=== PATIENT | female | born 1980 | race Caucasian/White ===

== ENCOUNTER 2016-07-13 01:33 | Emergency (ER) | payer SELFPAY ==
[~2016-07-13] VITALS: Ht 170.2 cm; Wt 105.5 kg
[~2016-07-13 01:33] MED LIST: CIPR500T4 PO; LEVO175T38 PO; NORG1TAB55 PO; PHEN-537 PO
[2016-07-13 01:36] VITALS: Ht 170.2 cm; Wt 105.5 kg
[2016-07-13] MEDS ORDERED: ONDANSETRON 4 MG INJ IV STA (01:39)
[2016-07-13] MEDS ORDERED: SOD CHLORIDE 0.9% 500 ML IV STA (01:39)
[2016-07-13] MEDS ORDERED: morphine 4 MG/ML VIAL IV STA (01:39)
[2016-07-13 01:48] LABS: URINE BLOOD (Dip) POC Trace-lysed (NEGATIVE)
[2016-07-13 02:10] LABS: ADD SCAN DIFF NO
[2016-07-13 02:18] LABS: ABNORMAL IP MESSAGE 1; BASOPHILS % 0.2 % (0.0-2.0); EOSINOPHILS # 0.2 10^3/ul (0.0-0.5); EOSINOPHILS % 0.7 % (0.0-7.0); HEMATOCRIT 42.5 % (37.0-47.0); LYMPHOCYTES # 2.6 10^3/ul (0.8-2.9); LYMPHOCYTES % 12.4 % (15.0-51.0); MEAN CORPUSCULAR HEMOGLOBIN 29.5 pg (29.0-33.0); MEAN CORPUSCULAR HGB CONC 32.9 g/dl (32.0-37.0); MEAN CORPUSCULAR VOLUME 89.7 fl (82.0-101.0); MEAN PLATELET VOLUME 9.6 fl (7.4-10.4); MONOCYTE # 1.7 10^3/ul (0.3-0.9); NEUTROPHIL # 16.6 10^3/ul (1.6-7.5); NEUTROPHILS % 78.1 % (39.0-77.0); PLATELET COUNT 400 10^3/UL (140-415); RED BLOOD COUNT 4.74 10^6/ul (4.20-5.40); RED CELL DISTRIBUTION WIDTH 12.2 % (11.5-14.5); WHITE BLOOD COUNT 21.2 10^3/ul (4.8-10.8)
[2016-07-13] MEDS ORDERED: LORA1TAB PO (02:21)
[2016-07-13] MEDS ORDERED: CYCL-319 PO (02:21)
[2016-07-13] MEDS ORDERED: MELA1TAB9 PO (02:22)
[2016-07-13 02:24] LABS: ADD UMIC YES; URINE BILIRUBIN (Dip) NEGATIVE (NEGATIVE); URINE BLOOD (Dip) TRACE (NEGATIVE); URINE COLOR YELLOW (YELLOW); URINE GLUCOSE (Dip) NEGATIVE (NEGATIVE); URINE KETONES (Dip) TRACE (NEGATIVE); URINE LEUKOCYTE ESTERASE (Dip) NEGATIVE (NEGATIVE); URINE NITRITE (Dip) NEGATIVE (NEGATIVE); URINE TOTAL PROTEIN (Dip) 1+ (NEGATIVE); URINE UROBILINOGEN (Dip) 0.2 E.U./dL (0.1-1.0)
[2016-07-13] MEDS ORDERED: OMEP10CA4 PO (02:25)
[2016-07-13 02:31] LABS: ALBUMIN 4.4 g/dl (3.3-4.9); POTASSIUM 3.7 mmol/L (3.5-5.1)
[2016-07-13 02:33] LABS: BACTERIA,URINE MODERATE; SQUAMOUS EPITHELIAL CELL,UR FEW; URINE RBCS 0-2 /HPF (0)
[2016-07-13 02:34] LABS: ALBUMIN/GLOBULIN RATIO 1.29; BILIRUBIN,INDIRECT 0.2 mg/dl (0-1.1); BILIRUBIN,TOTAL 0.2 mg/dl (0.2-1.3); CALCIUM 9.4 mg/dl (8.4-10.2); CREATININE 0.73 mg/dl (0.44-1.00); TOTAL PROTEIN 7.8 g/dl (6.1-8.1)
[2016-07-13] MEDS ORDERED: LIDOCAINE/MYLANTA 40 ML BTL PO ONE (03:00)
--- NOTE | 2016-07-13 04:33 | RADRPT ---
PROCEDURE: CT Abdomen and pelvis without contrast. CLINICAL INDICATION: Abdominal pain. TECHNIQUE: CT scan of the abdomen and pelvis was performed on a multi-detector high-resolution CT scanner. Contiguous axial images were obtained from the lung bases to the ischial tuberosities wit hout intravenous contrast. Coronal and sagittal reformatted images were also obtained. Images were reviewed on the PACS workstation. One or more of the following dose reduction techniques were used: - Automated exposure control. - Adjustment of the mA and/or kV according to patient size. - Use of iterative reconstruction technique. Exam CTD/vol = 22.82 mGy. Total exam DLP = 1453.08 mGy-cm. COMPARISON: 03/24/2015. FINDINGS: Evaluation of the lung bases demonstrates minimal bibasilar atelectasis. Abdomen: The liver is normal in size and diffusely low in attenuation consistent with fatty infiltr ation. There is no focal mass or dilatation of the biliary tree. The gallbladder is not distended. The spleen is normal in size and contains a small 10 mm hypodense lesion which could represent a c yst or hemangioma. The pancreas and bilateral adrenal glands are within normal limits. Bilateral k idneys are normal in size with no contour deforming mass identified. There is a 2 mm calculus withi n the mid to lower pole of the right kidney. There is no ureteral calculus identified. There is no hydronephrosis or hydroureter. There is no retroperitoneal adenopathy. The abdominal aorta is of normal caliber. There is no abnormal bowel wall thickening or distension. There is no bowel obstruction or free air . A normal appendix is identified. There is no diverticulosis or diverticulitis. There is no asci roel. Pelvis: The bladder is unremarkable. The uterus and adnexa are within normal limits. There is no significant pelvic adenopathy or free fluid. Evaluation of the osseous structures demonstrates no suspicious lytic or blastic lesion. IMPRESSION: Fairly infiltration of the liver. Small splenic cyst versus hemangioma, unchanged. Nonobstructing right renal calculus. Otherwise no acute abnormality identified within the abdomen and pelvis. .Jesse Tellez MD, Date Time Electronically viewed and signed by .Jesse Tellez MD, on 07/13/2016 04:33 .T/
--- NOTE | 2016-07-13 04:36 | ERD ---
ER Documentation Chief Complaint Date/Time DATE: 07/13/16 TIME: 04:35 Chief Complaint epigstric pain since 2 hours ago HPI This very pleasant 35 year from epigastric and vomiting since 2 hours ago. Pain is mild to moderate intensity. Happened after she had a vegan hamburger. Mild nausea but no vomiting. Complains of abdominal distention. No sylvester abdominal pain. No other current complaints. ROS All systems reviewed and are negative except as per history of present illness. Medications Home Meds Reported Medications Omeprazole* (Omeprazole*) 10 Mg Capsule.dr, 10 MG PO DAILY, #30 CAP 07/13/16 Melatonin-Pyridoxine Hcl (Melatonin) Unknown Strength Tablet, 1 TAB PO HS, TAB 07/13/16 Cyclobenzaprine Hcl* (Cyclobenzaprine Hcl*) 10 Mg Tablet, 10 MG PO TID, #90 TAB 07/13/16 Lorazepam* (Lorazepam*) 1 Mg Tablet, 0.5 MG PO Q8 Y for PAIN, #60 TAB 07/13/16 Levothyroxine Sodium* (Levoxyl*) 175 Mcg Tablet, 175 MCG PO BEFORE BREAKFAST, # 30 TAB 03/24/15 Norgestimate-Ethinyl Estradiol (Sprintec) 1 Tab Tablet, 1 TAB PO, TAB 03/24/15 Discontinued Scripts Ciprofloxacin Hcl* (Ciprofloxacin Hcl*) 500 Mg Tablet, 500 MG PO BID for 10 Days , TAB Prov:NACHO NICE DO 03/24/15 Phenazopyridine Hcl* (Pyridium*) 100 Mg Tab, 100 MG PO TID Y for DYSURIA, #8 TAB Prov:NACHO NICE DO 03/24/15 Allergies Allergies: Coded Allergies: pseudoephedrine (Unverified Allergy, Unknown, 07/13/16) Uncoded Allergies: LORCAPS (Allergy, Unknown, 03/24/15) PMhx/Soc History of Surgery: Yes (thyroid ca) Hx Miscellaneous Medical Probl: Yes (kidney stone) Hx Alcohol Use: No Hx Substance Use: No Hx Tobacco Use: No Smoking Status: Never smoker Physical Exam Vitals Vital Signs Date Time Temp Pulse Resp B/P Pulse Ox O2 Delivery O2 Flow Rate FiO2 07/13/16 03:51 98.4 86 20 123/78 100 Room Air 07/13/16 01:36 97.6 111 20 152/90 98 Physical Exam Const: [] Head: Atraumatic Eyes: Normal Conjunctiva ENT: Normal External Ears, Nose and Mouth. Neck: Full range of motion..~ No meningismus. Resp: Clear to auscultation bilaterally Cardio: Regular rate and rhythm, no murmurs Abd: Soft, non tender, non distended. Normal bowel sounds Skin: No petechiae or rashes Back: No midline or flank tenderness Ext: No cyanosis, or edema Neur: Awake and alert Psych: Normal Mood and Affect Result Diagram: 07/13/16 0150 07/13/16 0150 Results 24 hrs Laboratory Tests Test 07/13/16 01:49 07/13/16 01:50 Bedside Urine pH (LAB) 5.5 Bedside Urine Protein (LAB) 2+ Bedside Urine Glucose (UA) Negative Bedside Urine Ketones (LAB) Negative Bedside Urine Blood Trace-lysed Bedside Urine Nitrite (LAB) Negative Bedside Urine Leukocyte Esterase (L Negative White Blood Count 21.210^3/ul Red Blood Count 4.7410^6/ul Hemoglobin 14.0g/dl Hematocrit 42.5% Mean Corpuscular Volume 89.7fl Mean Corpuscular Hemoglobin 29.5pg Mean Corpuscular Hemoglobin Concent 32.9g/dl Red Cell Distribution Width 12.2% Platelet Count 13372^3/UL Mean Platelet Volume 9.6fl Neutrophils % 78.1% Lymphocytes % 12.4% Monocytes % 8.0% Eosinophils % 0.7% Basophils % 0.2% Nucleated Red Blood Cells % 0.0/100WBC Neutrophils # 16.610^3/ul Lymphocytes # 2.610^3/ul Monocytes # 1.710^3/ul Eosinophils # 0.210^3/ul Basophils # 0.010^3/ul Nucleated Red Blood Cells # 0.010^3/ul Urine Color YELLOW Urine Clarity CLEAR Urine pH 5.5 Urine Specific [place] >=1.030 Urine Ketones TRACE Urine Nitrite NEGATIVE Urine Bilirubin NEGATIVE Urine Urobilinogen 0.2 E.U./dL Urine Leukocyte Esterase NEGATIVE Urine Microscopic RBC 0-2/HPF Urine Microscopic WBC 0-2/HPF Urine Squamous Epithelial Cells FEW Urine Bacteria MODERATE Urine Hemoglobin TRACE Urine Glucose NEGATIVE% Urine Total Protein 1+ Sodium Level 143mmol/L Potassium Level 3.7mmol/L Chloride Level 103mmol/L Carbon Dioxide Level 25mmol/L Anion Gap 19 Blood Urea Nitrogen 12mg/dl Creatinine 0.73mg/dl Glucose Level 112mg/dl Calcium Level 9.4mg/dl Total Bilirubin 0.2mg/dl Direct Bilirubin 0.00mg/dl Indirect Bilirubin 0.2mg/dl Aspartate Amino Transf (AST/SGOT) 20IU/L Alanine Aminotransferase (ALT/SGPT) 27IU/L Alkaline Phosphatase 76IU/L Total Protein 7.8g/dl Albumin 4.4g/dl Globulin 3.40g/dl Albumin/Globulin Ratio 1.29 Lipase 109U/L Current Medications Medications (Trade) Dose Ordered Sig/Mariel Route PRN Reason Start Time Stop Time Status Last Admin Dose Admin Sodium Chloride (NS) 500 ml @ 500 mls/hr Q1H STAT IV 07/13/16 01:39 07/13/16 02:38 DC 07/13/16 01:51 Morphine Sulfate (morphine) 4 mg ONCE STAT IV 07/13/16 01:39 07/13/16 01:40 DC 07/13/16 01:52 Ondansetron HCl (Zofran Inj) 4 mg ONCE STAT IV 07/13/16 01:39 07/13/16 01:40 DC 07/13/16 01:51 Miscellaneous Medication (Gi Cocktail (2)) 40 ml ONCE ONCE PO 07/13/16 03:00 07/13/16 03:01 DC 07/13/16 02:50 Procedures/MDM Medical decision-m[age] year female epigastric abdominal pain likely secondary to foodborne issue. At this point feeling better. Discharge home with Zantac, Zofran, Carafate. Return in 8 hours for serial abdominal exams. No evidence of surgical abdomen on serial abdominal examinations. CT shows no evidence of surgical abdomen. Departure Diagnosis: Primary Impression: Epigastric pain Condition: Stable DERICK GARCIA July 13, 2016 04:36
[2016-07-13] MEDS ORDERED: RANI150T9 PO (04:37)
[2016-07-13] MEDS ORDERED: SUCR1TAB56 PO (04:37)
[2016-07-13] MEDS ORDERED: ONDA4TAB14 PO (04:37)
[2016-07-13 04:55] VITALS: BP 118/80; PULSE 76; RESP 20; TEMP 98.4
== END 2016-07-13 04:56 | disposition home or self-care (01) ==
LOC: E/R 01:33
DX: R10.13 Epigastric pain (principal); R11.0 Nausea; Z85.850 Personal history of malignant neoplasm of thyroid
CPT/HCPCS: 36415; 74176; 80053; 81001; 83690; 85025; 96374; 96375; 99285; J2270; J2405; J7040; 81003